=== PATIENT | female | born 1995 | race Caucasian/White ===

== ENCOUNTER 2018-05-26 12:54 | Inpatient (IN) | payer MEDICAID ==
[~2018-05-26] VITALS: Ht 157.5 cm; Wt 90.9 kg
[2018-05-26] MEDS ORDERED: OXYTOCIN 30U/ 0.9% NaCL 500ML 500 ML IV ONE (13:23)
[2018-05-26] MEDS: LACTATED RINGERS 1,000 ML IV SCH (13:30)
[2018-05-26] MEDS ORDERED: TERBUTALINE 1 MG/ML, 1ML IVPush PRN (13:30)
[2018-05-26] MEDS ORDERED: METOCLOPRAMIDE 5 MG/ML, 2ML IVPush PRN (13:30)
[2018-05-26] MEDS ORDERED: ONDANSETRON 2MG/ML, 2ML IVPush PRN (13:30)
[2018-05-26] MEDS ORDERED: FENTANYL PF 100 MCG/2ML IVPush PRN (13:30)
[2018-05-26] MEDS ORDERED: FENTANYL PF 100 MCG/2ML IV PRN (13:30)
[2018-05-26] MEDS ORDERED: SODIUM CITRATE/CITRIC ACID 30 ML UDC PO PRN (13:30)
[2018-05-26] MEDS ORDERED: CALCIUM CARBONATE 500 MG TAB.CHEW PO PRN (13:30)
[2018-05-26 14:04] LABS: BASOPHILS # (AUTO) 0.01 x10^3/uL (0-0.1); BASOPHILS % (AUTO) 0 % (0-1); EOSINOPHILS # (AUTO) 0.01 x10^3/uL (0-0.4); EOSINOPHILS % (AUTO) 0 % (1-7); LYMPHOCYTES # (AUTO) 1.36 x10^3/uL (1-3.4); LYMPHOCYTES % (AUTO) 13 % (22-44); MD NO; MEAN CORPUSCULAR HEMOGLOBIN 26.2 pg (27.0-34.8); MEAN CORPUSCULAR VOLUME 79.2 fL (80-100); MEAN PLATELET VOLUME 9.2 fL (7.4-10.4); MONOCYTES # (AUTO) 0.68 x10^3/uL (0.2-0.8); MONOCYTES % (AUTO) 7 % (2-9); NEUTROPHILS # (AUTO) 8.35 x10^3/uL (1.8-6.8); NEUTROPHILS % (AUTO) 80 % (42-75); PLATELET COUNT 259 x10^3/uL (130-400); RED CELL DISTRIBUTION WIDTH 14.4 % (9.6-15.2)
[2018-05-26] MEDS ORDERED: NEWBORN KIT ONE (15:45)
[2018-05-26] MEDS ORDERED: OXYTOCIN 30U/ 0.9% NaCL 500ML 500 ML ONE (15:46)
[2018-05-26] MEDS ORDERED: MISOPROSTOL 200 MCG TABLET ONE (15:46)
[2018-05-26] MEDS ORDERED: LIDOCAINE/PF 1%, 30ML ONE (19:01)
[2018-05-26] MEDS: D5%-LACTATED RINGERS 1,000 ML IV SCH (19:23)
[2018-05-26] MEDS ORDERED: FENTANYL/BUPIV./NS/PF 250 ML EPIDCONT SCH ×2 (20:07→20:59)
[2018-05-26 20:09] VITALS: BP 108/57
[2018-05-26] MEDS ORDERED: LACTATED RINGERS 1,000 ML IVBOLUS PRN ×2 (20:30→21:00)
[2018-05-26] MEDS ORDERED: MISOPROSTOL 200 MCG TABLET PR PRN (20:30)
[2018-05-26] MEDS ORDERED: LACTATED RINGERS 1,000 ML IV SCH (20:59)
[2018-05-26] MEDS ORDERED: EPHEDRINE 50 MG/ML, 1ML IVPush PRN (21:00)
[2018-05-26] MEDS ORDERED: NALOXONE 0.4 MG/ML, 1ML IVPush PRN (21:00)
[2018-05-26] MEDS ORDERED: FENTANYL/BUPIV./NS/PF 250 ML EPIDCONT ONE (21:03)
[2018-05-26] MEDS ORDERED: FENTANYL PF 100 MCG/2ML ONE (21:21)
[2018-05-27] MEDS ORDERED: EPHEDRINE 50 MG/ML, 1ML ONE (00:02)
[2018-05-27] MEDS: LACTATED RINGERS 1,000 ML IV SCH ×3 (00:09→05:23)
[2018-05-27] MEDS ORDERED: OXYTOCIN 30U/ 0.9% NaCL 500ML 500 ML ONE (04:25)
[2018-05-27] MEDS: OXYTOCIN 30U/ 0.9% NaCL 500ML 500 ML IV SCH ×2 (04:29→20:55)
[2018-05-27] MEDS: D5%-LACTATED RINGERS 1,000 ML IV SCH (05:23)
[2018-05-27] MEDS ORDERED: IBUPROFEN 600 MG TABLET ONE (06:34)
[2018-05-27] MEDS: IBUPROFEN 600 MG TABLET PO PRN ×3 (06:39→22:10)
[2018-05-27] MEDS ORDERED: OXYcodone/APAP 5/325MG TABLET ONE (07:48)
[2018-05-27] MEDS: OXYcodone/APAP 5/325MG TABLET PO PRN ×3 (07:51→22:10)
[2018-05-27 09:30] VITALS: BP 97/62
[2018-05-27 12:00] VITALS: BP 110/65
[2018-05-27 12:09] LABS: BASOPHILS % (AUTO) 0 % (0-1); EOSINOPHILS # (AUTO) 0.01 x10^3/uL (0-0.4); EOSINOPHILS % (AUTO) 0 % (1-7); LYMPHOCYTES # (AUTO) 1.53 x10^3/uL (1-3.4); LYMPHOCYTES % (AUTO) 10 % (22-44); MD NO; MEAN CORPUSCULAR HEMOGLOBIN 26.3 pg (27.0-34.8); MEAN CORPUSCULAR VOLUME 79.7 fL (80-100); MEAN PLATELET VOLUME 9.3 fL (7.4-10.4); MONOCYTES # (AUTO) 1.14 x10^3/uL (0.2-0.8); MONOCYTES % (AUTO) 7 % (2-9); NEUTROPHILS # (AUTO) 13.18 x10^3/uL (1.8-6.8); NEUTROPHILS % (AUTO) 83 % (42-75); PLATELET COUNT 237 x10^3/uL (130-400); RED BLOOD COUNT 4.12 x10^6/uL (3.82-5.3); RED CELL DISTRIBUTION WIDTH 14.7 % (9.6-15.2)
[2018-05-27 16:00] VITALS: BP 118/73
[2018-05-27 19:30] VITALS: BP 105/69
[2018-05-27] MEDS: DOCUSATE 100 MG CAPSULE PO PRN (22:10)
[2018-05-28 00:05] VITALS: BP 96/61
[2018-05-28] MEDS: OXYTOCIN 30U/ 0.9% NaCL 500ML 500 ML IV SCH (02:09)
[2018-05-28 07:20] VITALS: BP 99/67
[2018-05-28] MEDS: PRENATAL VIT/IRON/FA 1 EACH TABLET PO SCH ×2 (09:00→09:04)
[2018-05-28] MEDS: IBUPROFEN 600 MG TABLET PO PRN (09:04)
[2018-05-28] MEDS: DOCUSATE 100 MG CAPSULE PO PRN (09:04)
[2018-05-28] MEDS ORDERED: DOCU-131 PO (12:05)
[2018-05-28] MEDS ORDERED: IBUP-1222 PO (12:05)
[2018-05-28] MEDS ORDERED: MEASLES,MUMPS&RUBELLA VACC/PF 0.5 ML SQ-VACC ONE (12:16)
== END 2018-05-28 13:10 | disposition home or self-care (01) | DRG 775 ==
LOC: LDOP 12:54 → LDIP 13:43 → 2NW 05-27 09:14
PROVIDERS: ADMIT Obstetrics & Gynecology; ATTEND Obstetrics & Gynecology
PROC: 10E0XZZ Delivery of Products of Conception, External Approach (ICD-10-PCS; principal; 2018-05-27)
PROC: 3E0R3BZ Introduction of Anesthetic Agent into Spinal Canal, Percutaneous Approach (ICD-10-PCS; 2018-05-27)
PROC: 00HU33Z Insertion of Infusion Device into Spinal Canal, Percutaneous Approach (ICD-10-PCS; 2018-05-27)
DX: O77.0 Labor and delivery complicated by meconium in amniotic fluid (principal); O99.214 Obesity complicating childbirth; E66.9 Obesity, unspecified; Z68.36 Body mass index [BMI] 36.0-36.9, adult; Z37.0 Single live birth; Z3A.39 39 weeks gestation of pregnancy
CPT/HCPCS: 36415; J7121; 85025; 86850; 86900; J3010; J2590; J7120

== ENCOUNTER 2019-08-10 00:43 | Outpatient (CLI) | payer MEDICAID ==
[~2019-08-10] VITALS: Ht 157.5 cm; Wt 95.5 kg
[~2019-08-10 00:43] MED LIST: DOCU-131 PO; IBUP-1222 PO
[2019-08-10 01:04] VITALS: BP 113/61
[2019-08-10] MEDS ORDERED: PREN1TAB60 PO (01:39)
== END 2019-08-10 02:32 | disposition home or self-care (01) ==
LOC: LDOP 00:43
PROVIDERS: ATTEND Obstetrics & Gynecology
DX: O26.893 Other specified pregnancy related conditions, third trimester (principal); Z3A.38 38 weeks gestation of pregnancy
CPT/HCPCS: 59025; 99211; G0463

== ENCOUNTER 2019-08-16 06:11 | Inpatient (IN) | payer MEDICAID ==
[~2019-08-16] VITALS: Ht 157.5 cm; Wt 95.5 kg
[~2019-08-16 06:11] MED LIST changes: +PREN1TAB60 PO
[2019-08-16] MEDS ORDERED: OXYTOCIN 30U/ 0.9% NaCL 500ML 500 ML IV ONE (06:16)
[2019-08-16] MEDS ORDERED: OXYTOCIN 30U/ 0.9% NaCL 500ML 500 ML IV PRN (06:16)
[2019-08-16] MEDS ORDERED: D5%-LACTATED RINGERS 1,000 ML IV SCH (06:16)
[2019-08-16] MEDS ORDERED: MISOPROSTOL 200 MCG TABLET ONE (06:26)
[2019-08-16] MEDS ORDERED: NEWBORN KIT ONE (06:26)
[2019-08-16] MEDS ORDERED: LIDOCAINE 1%, 20ML ONE (06:26)
[2019-08-16] MEDS ORDERED: OXYTOCIN 30U/ 0.9% NaCL 500ML 500 ML ONE ×2 (06:27→13:53)
[2019-08-16] MEDS ORDERED: CALCIUM CARBONATE 500 MG TAB.CHEW PO PRN (06:30)
[2019-08-16] MEDS ORDERED: PENICILLIN GK 5,000,000 UNITS in DEXTROSE 5% 100 ML IVPB ONE (06:30)
[2019-08-16] MEDS ORDERED: PENICILLIN GK 2,500,000 UNITS in DEXTROSE 5% 100 ML IVPB SCH (06:30)
[2019-08-16] MEDS ORDERED: ONDANSETRON 2MG/ML, 2ML IVPush PRN ×2 (06:30→11:00)
[2019-08-16] MEDS ORDERED: FENTANYL PF 100 MCG/2ML IV PRN (06:30)
[2019-08-16] MEDS ORDERED: METOCLOPRAMIDE 5 MG/ML, 2ML IVPush PRN (06:30)
[2019-08-16] MEDS ORDERED: FENTANYL PF 100 MCG/2ML IVPush PRN (06:30)
[2019-08-16] MEDS ORDERED: TERBUTALINE 1 MG/ML, 1ML SQ PRN (06:30)
[2019-08-16] MEDS ORDERED: TERBUTALINE 1 MG/ML, 1ML IVPush PRN (06:30)
[2019-08-16 06:42] LABS: BASOPHILS # (AUTO) 0.04 x10^3/uL (0-0.1); BASOPHILS % (AUTO) 0 % (0-1); EOSINOPHILS # (AUTO) 0.48 x10^3/uL (0-0.4); EOSINOPHILS % (AUTO) 5 % (1-7); LYMPHOCYTES # (AUTO) 2.17 x10^3/uL (1-3.4); LYMPHOCYTES % (AUTO) 21 % (22-44); MD NO; MEAN CORPUSCULAR HEMOGLOBIN 28.7 pg (27.0-34.8); MEAN CORPUSCULAR HGB CONC 33.1 g/dL (32.4-35.8); MEAN CORPUSCULAR VOLUME 86.9 fL (80-100); MEAN PLATELET VOLUME 8.3 fL (7.4-10.4); MONOCYTES # (AUTO) 0.74 x10^3/uL (0.2-0.8); MONOCYTES % (AUTO) 7 % (2-9); NEUTROPHILS # (AUTO) 6.74 x10^3/uL (1.8-6.8); NEUTROPHILS % (AUTO) 66 % (42-75); PLATELET COUNT 244 x10^3/uL (130-400); RED BLOOD COUNT 4.27 x10^6/uL (3.82-5.3); RED CELL DISTRIBUTION WIDTH 14.8 % (9.6-15.2)
[2019-08-16] MEDS: LACTATED RINGERS 1,000 ML IV SCH ×3 (06:52→10:53)
[2019-08-16] MEDS ORDERED: FENTANYL/BUPIV./NS/PF 250 ML EPIDCONT SCH ×2 (09:21→10:55)
[2019-08-16] MEDS ORDERED: FENTANYL PF 500 MCG, BUPIVACAINE/PF 0.5%, 30ML 62.5 ML in SODIUM CHLORIDE 0.9% 177.5 ML EPIDCONT SCH (09:30)
[2019-08-16] MEDS ORDERED: BUPIVACAINE 0.25% ONE (10:09)
[2019-08-16] MEDS ORDERED: FENTANYL PF 100 MCG/2ML ONE (10:09)
[2019-08-16] MEDS ORDERED: LACTATED RINGERS 1,000 ML IV SCH (10:55)
[2019-08-16] MEDS ORDERED: EPHEDRINE 50 MG/ML, 1ML IVPush PRN (11:00)
[2019-08-16] MEDS ORDERED: LACTATED RINGERS 1,000 ML IVBOLUS PRN (12:00)
[2019-08-16] MEDS ORDERED: IBUPROFEN 600 MG TABLET ONE (13:53)
[2019-08-16] MEDS: OXYTOCIN 30U/ 0.9% NaCL 500ML 500 ML IV SCH (14:39)
[2019-08-16] MEDS ORDERED: MISOPROSTOL 200 MCG TABLET PR PRN (15:00)
[2019-08-16] MEDS ORDERED: IBUPROFEN 600 MG TABLET PO PRN (15:00)
[2019-08-16] MEDS ORDERED: METHYLERGONOVINE 0.2 MG/ML IM PRN (15:00)
[2019-08-16] MEDS ORDERED: ONDANSETRON 2MG/ML, 2ML IV PRN (15:00)
[2019-08-16] MEDS ORDERED: OXYcodone/APAP 5/325MG TABLET PO PRN (15:00)
[2019-08-16] MEDS ORDERED: SIMETHICONE 80 MG CHEW TAB PO PRN (15:00)
[2019-08-16] MEDS ORDERED: CARBOPROST TROMETHAMINE 250 MCG/ML, 1ML IM PRN (15:00)
[2019-08-16] MEDS ORDERED: ACETAMINOPHEN 325 MG TABLET PO PRN (15:00)
[2019-08-16 15:59] VITALS: BP 98/68
[2019-08-16 20:10] VITALS: BP 104/69
[2019-08-16] MEDS: DOCUSATE 100 MG CAPSULE PO PRN (20:16)
[2019-08-16] MEDS: IBUPROFEN 600 MG TABLET PO PRN (20:16)
[2019-08-16 22:12] LABS: BASOPHILS # (AUTO) 0.02 x10^3/uL (0-0.1); BASOPHILS % (AUTO) 0 % (0-1); EOSINOPHILS # (AUTO) 0.31 x10^3/uL (0-0.4); EOSINOPHILS % (AUTO) 3 % (1-7); LYMPHOCYTES % (AUTO) 15 % (22-44); MD NO; MEAN CORPUSCULAR HEMOGLOBIN 27.8 pg (27.0-34.8); MEAN CORPUSCULAR HGB CONC 32.2 g/dL (32.4-35.8); MEAN CORPUSCULAR VOLUME 86.3 fL (80-100); MEAN PLATELET VOLUME 8.7 fL (7.4-10.4); MONOCYTES % (AUTO) 6 % (2-9); NEUTROPHILS # (AUTO) 9.49 x10^3/uL (1.8-6.8); NEUTROPHILS % (AUTO) 76 % (42-75); PLATELET COUNT 227 x10^3/uL (130-400); RED BLOOD COUNT 4.05 x10^6/uL (3.82-5.3); RED CELL DISTRIBUTION WIDTH 15.1 % (9.6-15.2)
[2019-08-16] MEDS: OXYcodone/APAP 5/325MG TABLET PO PRN (22:46)
[2019-08-17 00:10] VITALS: BP 113/74
[2019-08-17] MEDS: OXYcodone/APAP 5/325MG TABLET PO PRN (00:12)
[2019-08-17] MEDS: OXYTOCIN 30U/ 0.9% NaCL 500ML 500 ML IV SCH (00:39)
[2019-08-17] MEDS: IBUPROFEN 600 MG TABLET PO PRN ×2 (02:08→11:54)
[2019-08-17 04:05] VITALS: BP 92/52
[2019-08-17 07:54] VITALS: BP 103/65
[2019-08-17] MEDS ORDERED: PRENATAL VIT/IRON/FA 1 EACH TABLET PO SCH (09:00)
[2019-08-17] MEDS ORDERED: MEASLES,MUMPS&RUBELLA VACC/PF 0.5 ML SQ-VACC ONE (11:30)
[2019-08-17] MEDS: DOCUSATE 100 MG CAPSULE PO PRN (11:54)
[2019-08-17] MEDS ORDERED: IBUP-1222 PO (12:59)
== END 2019-08-17 15:55 | disposition home or self-care (01) | DRG 807 ==
LOC: LDIP 06:11 → 2NW 15:45
PROVIDERS: ADMIT Obstetrics & Gynecology; ATTEND Obstetrics & Gynecology
PROC: 10E0XZZ Delivery of Products of Conception, External Approach (ICD-10-PCS; principal; 2019-08-16)
PROC: 0UQMXZZ Repair Vulva, External Approach (ICD-10-PCS; 2019-08-16)
PROC: 3E0R3BZ Introduction of Anesthetic Agent into Spinal Canal, Percutaneous Approach (ICD-10-PCS; 2019-08-16)
PROC: 00HU33Z Insertion of Infusion Device into Spinal Canal, Percutaneous Approach (ICD-10-PCS; 2019-08-16)
PROC: 3E0134Z Introduction of Serum, Toxoid and Vaccine into Subcutaneous Tissue, Percutaneous Approach (ICD-10-PCS; 2019-08-17)
DX: O69.81X0 Labor and delivery complicated by cord around neck, without compression, not applicable or unspecified (principal); Z37.0 Single live birth; O71.82 Other specified trauma to perineum and vulva; Z23 Encounter for immunization; Z3A.39 39 weeks gestation of pregnancy; O77.0 Labor and delivery complicated by meconium in amniotic fluid
CPT/HCPCS: 36415; 85025; 86850; 86900; G0378; J2540; J2590; J3010; J7120